=== PATIENT | female | born 1990 | race Caucasian/White ===

== ENCOUNTER 2024-07-26 19:14 | Emergency (ER) | payer MEDICAID, SELFPAY ==
--- NOTE | 2024-07-26 | ECG_ITS ---
Test Reason : ABD PAIN Blood Pressure : / mmHG Vent. Rate : 084 BPM Atrial Rate : 084 BPM P-R Int : 148 ms QRS Dur : 072 ms QT Int : 364 ms P-R-T Axes : 048 -02 022 degrees QTc Int : 430 ms Normal sinus rhythm Normal ECG No previous ECGs available Referred By: Generic ED Physician Electronically Signed By:Chucho Martino
--- NOTE | ~2024-07-26 | CT_ITS ---
EXAMINATION: CT ANGIOGRAM OF THE CHEST WITH AND WITHOUT CONTRAST (CT PULMONARY ANGIOGRAM FOR PE) CLINICAL INFORMATION: central pleuritic chest pain COMPARISON: No pertinent prior studies are available for comparison. TECHNIQUE: Prior to contrast administration, noncontrast localization images were obtained. Subsequently, multidetector volumetric imaging was performed from the thoracic inlet to the pubic symphysis through the chest, abdomen, and pelvis following the administration of 85 mL Omnipaque 350 intravenous contrast. No contrast reaction reported Sagittal, coronal, and MIP oblique sagittal (through the chest only) reformatted images were obtained on the CT workstation, uploaded to PACS, and reviewed. This CT examination was performed using dose optimization techniques as appropriate, variously including the following: *Automated exposure control *Adjustment of mA and/or kV according to patient size (this includes techniques or standardized protocols for targeted exams where dose is matched to indication/reason for exam; i.e. extremities or head) *Use of iterative reconstruction technique Total exam dose-length product: 511 mGy-cm FINDINGS: QUALITY OF STUDY/CONTRAST BOLUS: Poor. Study quality is also degraded by motion artifact and the patient's large size with low-dose technique. PULMONARY ARTERIES: No central or large segmental pulmonary emboli. CORONARY ARTERY CALCIUM: None seen THORACIC AORTA: No aneurysm or dissection. LUNG: No focal consolidation, concerning nodules or masses. Tiny 3 mm micronodule seen in the right lower lobe (7:154). PLEURA: No pleural effusion or pneumothorax. MEDIASTINUM: Mild cardiac enlargement. No pericardial effusion. No hilar or mediastinal lymphadenopathy. No evidence of septal bowing or right heart strain. CHEST WALL/AXILLA: No axillary or internal mammary lymphadenopathy. OSSEOUS STRUCTURES: No acute or suspicious osseous abnormality. VISUALIZED ABDOMEN: The liver is enlarged as is the spleen. No adrenal masses are seen. CT/CT angio chest PE protocol IMPRESSION: 1. No evidence of pulmonary emboli. 2. Incidental note made of hepatosplenomegaly and mild cardiomegaly. VTE: negative. Fleischner guidelines were followed. Electronically signed by: Ezra Parrish MD 07/26/2024 11:08 PM EDT
--- NOTE | ~2024-07-26 | US_ITS ---
EXAMINATION: US ABDOMEN LIMITED CLINICAL INFORMATION: Right upper quadrant pain. Recent . COMPARISON: None available. TECHNIQUE: Real-time imaging of the right upper quadrant abdominal viscera. FINDINGS: PANCREAS: The tail of the pancreas is obscured by overlying bowel gas. The visualized portions appear unremarkable. LIVER: The liver is normal in size. The liver contour is normal. Parenchymal echogenicity is normal. No focal hepatic lesion. There is no intrahepatic biliary duct dilatation seen. GALLBLADDER: The gallbladder is physiologically distended without evidence of stones, sludge, polyps, wall thickening or pericholecystic fluid. COMMON BILE DUCT: Normal in caliber measuring 0.3 cm in diameter. RIGHT KIDNEY: No hydronephrosis. No renal calculi or focal parenchymal lesions. The kidney measures 10.8 cm in maximum dimension. FREE FLUID: None. US/US abdomen limited IMPRESSION: No cholelithiasis or sonographic evidence of acute cholecystitis. Electronically signed by: Dino Bruce MD 07/26/2024 10:42 PM EDT
[2024-07-26 19:41] VITALS: BP 111/71; PULSE 106; RESP 18; TEMP 36.6; O2SAT 99; BMI 49.8
[2024-07-26 20:33] LABS: MANUAL DIFF FLAG NO
[2024-07-26 20:36] LABS: Appearance Urine Clear; Color Urine Yellow; Glucose Urine UA Negative (Negative); Leukocyte Esterase Urine Trace (Negative); Nitrite Urine Negative (Negative); Specific Gravity - Urine >= 1.030 (1.005-1.025); UMIC TRIGGER UACC YES; Urine Blood Large (3+) (Negative); Urine Ketones Trace mg/dL (Negative); Urine Protein Trace mg/dL (Neg-Trace)
[2024-07-26 20:40] LABS: Bacteria Urine None Seen (None Seen); Hyaline Casts Urine 0-2 /LPF (0-2); RBC Urine >20 /HPF (0-2); UACC Culture Trigger YES
[2024-07-26 20:44] LABS: Basophils Percent Auto 0.3 % (0-2); Eosinophils Absolute Auto 0.2 X10*3/uL (0.0-0.4); Hematocrit 28.2 % (37.0-47.0); Hemoglobin 9.1 g/dl (12.0-16.0); Imm Gran Abs Auto 0.17 X10*3/uL (0.00-0.03); Imm Gran Pct Auto 1.7 % (0.0-0.4); Lymphocytes Absolute Auto 1.4 X10*3/uL (1.2-4.9); Lymphocytes Percent Auto 13.7 % (20-40); Mean Corpuscular HGB Conc 32.3 g/dl (31.0-35.0); Mean Corpuscular Hemoglobin 19.9 pg (27.0-33.0); Mean Corpuscular Volume 61.6 fL (80.0-98.0); Mean Platelet Volume 10.1 fL (9.4-12.3); Monocytes Absolute Auto 0.5 X10*3/uL (0.1-1.2); Monocytes Percent Auto 5.2 % (2-11); NRBC Pct Auto 0.2 /100WBC (0.0-0.2); Neutrophils Absolute Auto 7.6 x10*3/uL (2.0-8.3); Neutrophils Percent Auto 77.1 % (45-73); Platelet Count 327 X10*3/uL (160-400); Red Blood Count 4.58 X10*6/uL (4.20-5.50); White Blood Count 9.9 X10*3/uL (4.8-10.8)
[2024-07-26 20:46] LABS: INTERNATIONAL NORM RATIO 1.1 (0.9-1.1)
[2024-07-26 20:49] LABS: Alanine Aminotransferase 59 U/L (0-31); Albumin Level 2.9 g/dL (3.5-5.0); Alkaline Phosphatase 122 U/L (39-117); Anion Gap 12 (12-20); Aspartate Amino Transferase 75 U/L (5-31); Bilirubin Total 0.2 mg/dL (0.0-1.0); Blood Urea Nitrogen 10 mg/dL (9-16); Calcium 8.9 mg/dL (8.4-10.2); Carbon Dioxide 24 mmol/L (22-29); Chloride 106 mmol/L (96-108); Creatinine Clr Calc Pharmacy 111.7; Estimated Glomerular Filt Rate > 60; Glucose Random 114 mg/dL (60-115); Potassium 3.7 mmol/L (3.3-5.1); Sodium 138 mmol/L (135-145); Total Protein 6.2 g/dL (6.5-8.0)
--- NOTE | 2024-07-26 21:06 | ED.FEMALEGU ---
HPI - Female Genitourinary General Chief complaint: Urogenital-Female Stated complaint: ?uti, abd pain, c/s 07/23 Time Seen by Provider: 07/26/24 20:58 Source: patient Mode of arrival: ambulatory Limitations: no limitations History of Present Illness ED Provider: JENNI ROSAS Narrative: 34 yo female with PMH of Factor V currently on lovenox inj and oral coumadin x 3 days after being 3 days PP for planned c section (breech) she states she is delivered at [facility] in [place] but is trying to live here now so she is in [place]. She had issues on the last day of her hospital stay with dysuria and upper abdominal pain that radiates to the back and hurts to take a deep breath. She has no fevers, n/v. She notes she had pre-eclampsia was on aspirin but not magnesium. She is pumping at this time. She has had PE and DVT in the past. Her legs are swollen. No fevers. She is urinating a lot and doesn't feel a lot comes out. She states that she takes tylenol and motrin for the pain. She has not had upper abdominal pain like this before. MD elicited complaint: dysuria and UTI Pertinent past history: other (recent nova catheter) Onset (ago): day(s) (3) Location of symptoms: urethra Severity: moderate Quality of pain: burning Consistency: intermittent Urinary symptoms: Dysuria, Urgency and Frequency Exacerbating factors: urination Relieving factors: none Associated symptoms: other (leg edema, upper abdominal pain) Treatment prior to arrival: none Related Data Allergies Allergy/AdvReac Type Severity Reaction Status Date / Time amoxicillin Allergy Angioedema Verified 07/26/24 19:44 cephalexin [From Keflex] Allergy Anaphylaxis Verified 07/26/24 19:44 latex Allergy Unknown Verified 07/26/24 19:44 nickel AdvReac Unknown Verified 07/26/24 19:44 Penicillins AdvReac Gastrointestinal Verified 07/26/24 19:44 Upset sulfamethoxazole AdvReac Gastrointestinal Verified 07/26/24 19:44 [From Bactrim] Upset trimethoprim [From Bactrim] AdvReac Gastrointestinal Verified 07/26/24 19:44 Upset Review of Systems Review of Systems: Constitutional : No Weight loss, No Fever, No Chills ENT/Mouth : No sore throat, No Rhinorrhea Eyes: No Eye Pain, No Swelling Cardiovascular : no Chest Pain, pos SOB, no Dyspnea on Exertion, No Orthopnea, pos Edema, No Palpitations Respiratory : No Cough, No Sputum Gastrointestinal : pos Nausea, No Vomiting, No Diarrhea, No abdominal Pain, No Hematochezia, No Melena Genitourinary : pos Dysuria, pos Urinary Frequency Musculoskeletal : No joint pain, No Myalgias, No Joint Swelling Skin : No Skin Lesions, No rash Neuro : No Weakness, No Numbness, No Dizziness, No Headache Psych : No Anxiety/Panic, No Depression All other systems reviewed and are negative [facility] Past Medical History Attestation statement: The following information was validated with the patient. Medical History DVT (deep venous thrombosis) Factor V Leiden Social History Social History (Updated 07/26/24 @ 22:23 by Arielle English DO) Alcohol intake: never Patient Tobacco Use Status: Never used Tobacco Smoked in Last 30 Days: No Use of substances other than those prescribed or required for medical reasons: No Advance Directives: No Advance Directives Information Provided: No Patient : No Physical Exam Vital Signs: Vital Signs: Last Vital Signs Temp 97.8 F 07/26/24 23:18 Pulse 85 07/26/24 23:55 Resp 20 07/26/24 23:55 BP 120/69 07/26/24 23:55 Pulse Ox 100 07/26/24 23:55 O2 Del Method Room Air 07/26/24 23:55 BMI result Body Mass Index 49.8 Appearance: Alert. Oriented X3. No acute distress. Eyes: Pupils equal, round and reactive to light. ENT: Pharynx normal. Neck: Normal inspection. Neck supple. CVS: Normal heart rate and rhythm. Pulses normal. Respiratory: No respiratory distress. Breath sounds normal. Abdomen: Soft and appropriately post op tender at incision there is some ss on dressing but no signs of cellulitis, obese abdomen Skin: Skin warm and dry. Normal skin color. Normal skin turgor. Extremities: 1+ pitting symmetric lower extremity edema. No calf ttp Neuro: Oriented X 3. No motor deficit. No sensory deficit. Course Course Course Narrative: spoke to patient about getting evaluated at [facility] she states she would like to call her OB in the AM which I stated is not a good idea She states she has to drive herself I again stated she should but she states she is the only one that has a car and license and they cannot leave the car here call out to OBGYN at [facility] 1121pm Reevaluation(s) Reevaluation #1: repeat BP 143/87 repeat BP is 120/69 repeat call out to [facility] 1215am spoke to resident patient can self present at [facility] Medications Administered Discontinued Medications Generic Name Dose Route Start Last Admin Trade Name Sebastian PRN Reason Stop Dose Admin Ibuprofen 400 mg 07/26/24 23:04 07/26/24 23:28 Ibuprofen 400 Mg Tablet PO 07/26/24 23:05 400 mg ONCE ONE Administration Iohexol 85 ml 07/26/24 22:53 07/26/24 22:53 Iohexol 350 Mg/Ml 100 Ml Infus..Btl IV 07/26/24 22:54 85 ml ONCE ONE Administration Medical Decision Making Medical Decision Making MDM Narrative: 34 yo female with PMH of Factor V leiden on lovenox and coumadin PPD 3 from c section for breech in [place] now living in [place] who presents with c/o upper abdominal pain radiating to back that is pleuritic - also has bilateral leg edema will need EKG, BNP, trop and CTA for PE. Given upper abdominal pain has no signs of hemolysis or low plts but LFTs are up US for GB ordered, will need to keep HELLP on the differential. Her BP is currently normal at this time but will monitor her. She has dysuria - UA ordered to rule out UTI given recent catheter. Differential Diagnosis Differential Diagnoses: The differential diagnosis associated with the presentation includes VTE, HELLP, biliary colic, UTI, PPM cardiomyopathy Admission/Observation Consideration of admission/observation: Escalation of care including admission/observation considered patient refuses ambulance states she is driving herself [employer] 15 aware of risks Consult Healthcare Provider Management of the patient was discussed with: Laboratory Operations Coordinator Lab Data [facility] Lab Attestation statement: I reviewed the patient's lab results. 07/26/24 20:27 07/26/24 20:27 Labs: Lab Results 07/26/24 07/26/24 07/26/24 Range/Units 20:20 20:27 21:55 WBC 9.9 (4.8-10.8) X10*3/uL RBC 4.58 (4.20-5.50) X10*6/uL Hgb 9.1 L (12.0-16.0) g/dl Hct 28.2 L (37.0-47.0) % MCV 61.6 L (80.0-98.0) fL MCH 19.9 L (27.0-33.0) pg MCHC 32.3 (31.0-35.0) g/dl RDW 21.0 H (11.0-16.0) % Plt Count 327 (160-400) X10*3/uL MPV 10.1 (9.4-12.3) fL Immature Gran % (Auto) 1.7 H (0.0-0.4) % Neut % (Auto) 77.1 H (45-73) % Lymph % (Auto) 13.7 L (20-40) % Dane % (Auto) 5.2 (2-11) % Eos % (Auto) 2.0 (0-4) % Baso % (Auto) 0.3 (0-2) % Lymph # (Auto) 1.4 (1.2-4.9) X10*3/uL Dane # (Auto) 0.5 (0.1-1.2) X10*3/uL Eos # (Auto) 0.2 (0.0-0.4) X10*3/uL Baso # (Auto) 0.0 (0.0-0.2) X10*3/uL Abs Immat Gran (auto) 0.17 H (0.00-0.03) X10*3/uL Absolute Neuts (auto) 7.6 (2.0-8.3) x10*3/uL Absolute Nucleated RBC 0.020 H (0.0-0.012) X10*3/uL Nucleated RBC % (auto) 0.2 (0.0-0.2) /100WBC PT 13.0 H (10.9-12.4) SEC INR 1.1 (0.9-1.1) Sodium 138 (135-145) mmol/L Potassium 3.7 (3.3-5.1) mmol/L Chloride 106 (96-108) mmol/L Carbon Dioxide 24 (22-29) mmol/L Anion Gap 12 (12-20) BUN 10 (9-16) mg/dL Creatinine 0.72 (0.5-1.4) mg/dL Estim Creat Clear Calc 111.7 Estimated GFR > 60 Random Glucose 114 (60-115) mg/dL Calcium 8.9 (8.4-10.2) mg/dL Total Bilirubin 0.2 (0.0-1.0) mg/dL AST 75 H (5-31) U/L ALT 59 H (0-31) U/L Alkaline Phosphatase 122 H (39-117) U/L Lactate Dehydrogenase 247 H (122-220) U/L Troponin I High Sens < 2.7 (<3.5-17.0) ng/L B-Natriuretic Peptide 27 (<100) pg/mL Total Protein 6.2 L (6.5-8.0) g/dL Albumin 2.9 L (3.5-5.0) g/dL Lipase 78 (8-78) U/L Urine Color Yellow Urine Appearance Clear Urine pH 6.0 (5.0-9.0) Ur Specific [place] >= 1.030 H (1.005-1.025) Urine Protein Trace (Neg-Trace) mg/dL Urine Glucose (UA) Negative (Negative) mg/dL Urine Ketones Trace (Negative) mg/dL Urine Blood Large (3+) H (Negative) Urine Nitrite Negative (Negative) Ur Leukocyte Esterase Trace H (Negative) Urine RBC >20 H (0-2) /HPF Urine WBC 11-20 H (0-5) /HPF Ur Squamous Epith Cells 3-5 (0-2) /HPF Urine Bacteria None Seen (None Seen) Hyaline Casts 0-2 (0-2) /LPF Independent Interpretation I performed an independent interpretation of an: EKG, Ultrasound (no biliary colic) and CT Scan (no PE) Interpretation: Rate: 84 Rhythm: NSR [place]: left Normal P waves. Normal BENIGNO. Normal QRS complex. ST T wave : inverted t waves V1, no ALEX qTC:430 prior studies: no acute ischemia The study has been interpreted contemporaneously by me. . Radiology Impression Discussion of test interpretation with radiology: I have reviewed the radiologist's reading. Radiologist Impression: TECHNIQUE: Real-time imaging of the right upper quadrant abdominal viscera. FINDINGS: PANCREAS: The tail of the pancreas is obscured by overlying bowel gas. The visualized portions appear unremarkable. LIVER: The liver is normal in size. The liver contour is normal. Parenchymal echogenicity is normal. No focal hepatic lesion. There is no intrahepatic biliary duct dilatation seen. GALLBLADDER: The gallbladder is physiologically distended without evidence of stones, sludge, polyps, wall thickening or pericholecystic fluid. COMMON BILE DUCT: Normal in caliber measuring 0.3 cm in diameter. RIGHT KIDNEY: No hydronephrosis. No renal calculi or focal parenchymal lesions. The kidney measures 10.8 cm in maximum dimension. FREE FLUID: None. US/US abdomen limited IMPRESSION: No cholelithiasis or sonographic evidence of acute cholecystitis. FINDINGS: QUALITY OF STUDY/CONTRAST BOLUS: Poor. Study quality is also degraded by motion artifact and the patient's large size with low-dose technique. PULMONARY ARTERIES: No central or large segmental pulmonary emboli. CORONARY ARTERY CALCIUM: None seen THORACIC AORTA: No aneurysm or dissection. LUNG: No focal consolidation, concerning nodules or masses. Tiny 3 mm micronodule seen in the right lower lobe (7:154). PLEURA: No pleural effusion or pneumothorax. MEDIASTINUM: Mild cardiac enlargement. No pericardial effusion. No hilar or mediastinal lymphadenopathy. No evidence of septal bowing or right heart strain. CHEST WALL/AXILLA: No axillary or internal mammary lymphadenopathy. OSSEOUS STRUCTURES: No acute or suspicious osseous abnormality. VISUALIZED ABDOMEN: The liver is enlarged as is the spleen. No adrenal masses are seen. CT/CT angio chest PE protocol IMPRESSION: 1. No evidence of pulmonary emboli. 2. Incidental note made of hepatosplenomegaly and mild cardiomegaly. VTE: negative. Fleischner guidelines were followed. Discharge Plan Discharge Clinical Impression: Dysuria, Acute upper abdominal pain Patient Disposition: Xfer Other Transfer Details: [facility] Instructions: Abdominal Pain (ED), Dysuria (ED) Additional Instructions: please show up at [facility]. you need to be evaluated given your complaints and upper abdominal pain [address] [place] [address] NOT THE ER BUT [facility] TECHNIQUE: Real-time imaging of the right upper quadrant abdominal viscera. FINDINGS: PANCREAS: The tail of the pancreas is obscured by overlying bowel gas. The visualized portions appear unremarkable. LIVER: The liver is normal in size. The liver contour is normal. Parenchymal echogenicity is normal. No focal hepatic lesion. There is no intrahepatic biliary duct dilatation seen. GALLBLADDER: The gallbladder is physiologically distended without evidence of stones, sludge, polyps, wall thickening or pericholecystic fluid. COMMON BILE DUCT: Normal in caliber measuring 0.3 cm in diameter. RIGHT KIDNEY: No hydronephrosis. No renal calculi or focal parenchymal lesions. The kidney measures 10.8 cm in maximum dimension. FREE FLUID: None. US/US abdomen limited IMPRESSION: No cholelithiasis or sonographic evidence of acute cholecystitis. TECHNIQUE: Prior to contrast administration, noncontrast localization images were obtained. Subsequently, multidetector volumetric imaging was performed from the thoracic inlet to the pubic symphysis through the chest, abdomen, and pelvis following the administration of 85 mL Omnipaque 350 intravenous contrast. No contrast reaction reported Sagittal, coronal, and MIP oblique sagittal (through the chest only) reformatted images were obtained on the CT workstation, uploaded to PACS, and reviewed. This CT examination was performed using dose optimization techniques as appropriate, variously including the following: *Automated exposure control *Adjustment of mA and/or kV according to patient size (this includes techniques or standardized protocols for targeted exams where dose is matched to indication/reason for exam; i.e. extremities or head) *Use of iterative reconstruction technique Total exam dose-length product: 511 mGy-cm FINDINGS: QUALITY OF STUDY/CONTRAST BOLUS: Poor. Study quality is also degraded by motion artifact and the patient's large size with low-dose technique. PULMONARY ARTERIES: No central or large segmental pulmonary emboli. CORONARY ARTERY CALCIUM: None seen THORACIC AORTA: No aneurysm or dissection. LUNG: No focal consolidation, concerning nodules or masses. Tiny 3 mm micronodule seen in the right lower lobe (7:154). PLEURA: No pleural effusion or pneumothorax. MEDIASTINUM: Mild cardiac enlargement. No pericardial effusion. No hilar or mediastinal lymphadenopathy. No evidence of septal bowing or right heart strain. CHEST WALL/AXILLA: No axillary or internal mammary lymphadenopathy. OSSEOUS STRUCTURES: No acute or suspicious osseous abnormality. VISUALIZED ABDOMEN: The liver is enlarged as is the spleen. No adrenal masses are seen. CT/CT angio chest PE protocol IMPRESSION: 1. No evidence of pulmonary emboli. 2. Incidental note made of hepatosplenomegaly and mild cardiomegaly. VTE: negative. Print Language: Sammarinese
[2024-07-26 22:21] LABS: B Type Natriuretic Peptide 27 pg/mL (<100)
[2024-07-26 22:25] LABS: Troponin-I High Sensitivity < 2.7 ng/L (<3.5-17.0)
[2024-07-26] MEDS: iohexoL 350 MG/ML 100 ML INFUS..BTL 85 ML IV (22:53)
[2024-07-26 23:18] VITALS: BP 143/87; PULSE 90; RESP 20; TEMP 36.6; O2SAT 100
[2024-07-26] MEDS: Ibuprofen 400 MG TABLET PO (23:28)
[2024-07-26 23:37] VITALS: BP 139/85; PULSE 88; RESP 20
[2024-07-26 23:43] LABS: Lipase 78 U/L (8-78)
[2024-07-26 23:55] VITALS: BP 120/69; PULSE 85; RESP 20; O2SAT 100
[2024-07-27 00:01] LABS: Lactate Dehydrogenase 247 U/L (122-220)
[2024-07-27 00:50] VITALS: BP 141/86; PULSE 82; RESP 20; TEMP 36.7; O2SAT 99
[2024-07-27 00:55] VITALS: BP 141/86; PULSE 82; RESP 20; TEMP 36.7; O2SAT 99
== END 2024-07-27 01:00 | disposition other institution (70) ==
PROVIDERS: Emergency Provider Emergency Medicine
DX: R30.0 Dysuria (principal); R10.11 Right upper quadrant pain; R60.0 Localized edema; R06.02 Shortness of breath; D68.51 Activated protein C resistance; Z86.718 Personal history of other venous thrombosis and embolism
CPT/HCPCS: 36415; 71275; 76705; 80053; 81001; 83615; 83690; 83880; 84484; 85025; 85610; 87086; 87088; 87186; 93005; 99285; Q9967

== ENCOUNTER → 2024-07-26 19:53 | Outpatient (BNV) | payer MEDICAID, SELFPAY | PROVIDERS: Emergency Provider Emergency Medicine; Visit Provider Internal Medicine Cardiovascular Disease | DX: R10.9 Unspecified abdominal pain (principal) | CPT/HCPCS: 93010 ==